=== PATIENT | male | born 1995 | race African-American/Black ===

== ENCOUNTER 2023-09-13 14:02 | Emergency (ER) | payer SELFPAY ==
[~2023-09-13] VITALS: Ht 172.7 cm; Wt 75.0 kg
[~2023-09-13 14:02] MED LIST: NO MEDS
[2023-09-13 14:06] VITALS: BP 129/64; PULSE 99; RESP 16; TEMP 99; O2SAT 95
== END 2023-09-13 19:15 | disposition left against medical advice (07) ==
LOC: ER 14:02
DX: R11.2 Nausea with vomiting, unspecified (principal); Z53.21 Procedure and treatment not carried out due to patient leaving prior to being seen by health care provider
CPT/HCPCS: 99281